=== PATIENT | female | born 1965 | race American Indian/Alaskan Native ===

== ENCOUNTER 2016-10-17 08:06 | Outpatient (CLI) | payer MEDICAID ==
--- NOTE | 2016-10-17 09:58 | Cat Scan Report ---
CT CHEST WITH CONTRAST: 10/17/16 08:06:00 CLINICAL: History of breast cancer status post left partial mastectomy. Anemia secondary to blood loss. Comparison: None. TECHNIQUE: Volumetric acquisition and 1.25 mm scan reconstructions after the uneventful intravenous injection of 100cc Omnipaque 300. Consent was obtained prior to the administration of contrast. FINDINGS: The lungs are normally expanded and clear. No pulmonary nodule or mass. Normal heart, pulmonary arteries and aorta. Right Zpupdq-[id number]-Wosh tip is in the right atrium. No hilar or mediastinal lymphadenopathy. No pleural effusion. Normal thyroid, trachea and esophagus. No axillary or supraclavicular lymphadenopathy. The upper abdomen is normal. The spleen measures 9.5 cm maximum. The bones and soft tissues are normal. IMPRESSION: Normal chest.
== END 2016-10-17 08:07 | disposition home or self-care (01) ==
LOC: SPVIMAG 08:06
PROVIDERS: ATTEND Internal Medicine Hematology & Oncology
DX: Z85.3 Personal history of malignant neoplasm of breast (principal); Z90.12 Acquired absence of left breast and nipple
CPT/HCPCS: 71260; Q9967

== ENCOUNTER 2016-12-14 10:33 | Outpatient (CLI) | payer MEDICAID ==
--- NOTE | 2016-12-14 13:15 | XRay Report ---
LUMBOSACRAL SPINE, FIVE VIEWS: Back pain Views of the lumbosacral spine demonstrate normal bony alignment, vertebral height and interspace distances. Oblique views show patent foramina and normal apophyseal joint alignment. IMPRESSION: Normal study.
--- NOTE | 2016-12-14 13:16 | XRay Report ---
RIGHT HIP: Hip pain. The bony architecture is intact without evidence of fracture or dislocation. No significant soft tissue abnormality is seen. IMPRESSION: Normal right hip.
== END 2016-12-14 10:34 | disposition home or self-care (01) ==
LOC: XRAY 10:33
PROVIDERS: ATTEND Internal Medicine Hematology & Oncology
DX: M54.9 Dorsalgia, unspecified (principal); M25.551 Pain in right hip; C50.212 Malignant neoplasm of upper-inner quadrant of left female breast; D50.0 Iron deficiency anemia secondary to blood loss (chronic)
CPT/HCPCS: 72110

== ENCOUNTER 2017-01-16 09:18 | Day surgery (SDC) | payer MEDICAID ==
[2017-01-16] MEDS ORDERED: NACL 0.9% 1000 ML 1,000 ML IV SCH (11:00)
--- NOTE | 2017-01-16 11:03 | Anesthesia Consultation ---
Anesthesia Consult and Med Hx Date of service: 01/16/17 - Airway Anesthetic Teeth Evaluation: Good ROM Head & Neck: Adequate Mental/Hyoid Distance: Adequate Mallampati Class: Class II Intubation Access Assessment: Probably Good - Pulmonary Exam CTA: Yes - Cardiac Exam Cardiac Exam: RRR - Pre-Operative Health Status ASA Pre-Surgery Classification: ASA3 Proposed Anesthetic Plan: MAC - Pulmonary Hx Smoking: No Hx Asthma: Yes (prn inhaler, uses Albuterol once a week) COPD: No Hx Pneumonia: No Hx Sleep Apnea: No - Cardiovascular System Hx Hypertension: Yes (history of "fast heart rate" - no episodes recently) Hx Coronary Artery Disease: No Hx Heart Attack/AMI: No Hx Angina: No (negative cardiac w/u per GI request) Hx Cardia Arrhythmia: No Hx Heart Murmur: No - Central Nervous System Hx Neuromuscular Disorder: No Hx Seizures: No CVA: No Hx Psychiatric Problems: No - Gastrointestinal Hx Gastroesophageal Reflux Disease: Yes - Endocrine Hx End Stage Renal Disease: No Hx Liver Disease: No Hx Non-Insulin Dependent Diabetes: No Hx Hypothyroidism: Yes Hx Hyperthyroidism: Yes (patient is now hypothyroid) - Hematic Hx Anemia: Yes Hx Sickle Cell Disease: No - Other Systems Hx Cancer: Yes (breast, 2015. Current treatment of chemo/radiation ) - Additional Comments Anesthesia Medical History Comments: no BP or IV left arm
--- NOTE | 2017-01-16 11:04 | Anesthesia Day of Surgery ---
Anesthesia Day of Surgery - Day of Surgery Patient Examined: Yes Patient H&P Reviewed: Yes Patient is NPO: Yes
[2017-01-16] MEDS ORDERED: WATER FOR IRRIG STERILE IR ONE (11:58)
[2017-01-16] MEDS ORDERED: XYLOCAINE MPF 2% ONE (12:00)
--- NOTE | 2017-01-16 12:33 | Short Stay Summary ---
Short Stay Documentation Date of service: 01/16/17 Narrative H&P: The patient presents for EGD for Nielson capsule placement to assess for suspected severe symptomatic GERD, refractory to medical therapy. - History Past Medical History: anemia, cancer (breast cancer history), GERD, hypothyroidism Past Surgical History: Other (breast surgery, tubal ligation, hernia repair) Social history: no significant social history, no smoking, no alcohol abuse - Allergies and Medications Current Medications: Allergies Penicillins Allergy (Verified 10/21/14 14:07) Rash codeine Adverse Reaction (Verified 10/21/14 14:07) Vomiting Home Medications Medication Instructions Recorded Confirmed Last Taken Type RX: Latanoprost [Xalatan 0.005% 1 drop OU QPM 07/07/14 10/21/14 01/15/17 History eye drops] RX: Diphenoxylate HCl/Atropine 1 each PO QID PRN 10/21/14 10/21/14 09/25/16 History [Lomotil 2.5-0.025 mg Tablet] RX: Levothyroxine [Synthroid] 200 mcg PO QAM 10/21/14 10/21/14 01/15/17 History RX: Ondansetron [Zofran TAB] 4 mg PO Q8HR PRN 10/21/14 10/21/14 01/15/17 History RX: Promethazine [Phenergan TAB] 25 mg PO Q6H PRN 10/21/14 10/21/14 09/25/16 History HYDROcodone/APAP 5-325 [[place] 1 each PO Q6HR PRN #20 tablet 10/27/14 09/25/16 Rx 5/325] Pantoprazole [Protonix] 40 mg PO QDAY #20 tablet 10/27/14 01/15/17 Rx RX: Amitriptyline [Elavil] 10 mg PO QHS #60 tablet 10/27/14 01/15/17 Rx RX: Butalb/Acetamin/Caff 50-325-40 2 tab PO Q4H PRN #30 tablet 10/27/14 Rx [Fioricet] RX: Divalproex ER [Depakote ER] 500 mg PO QDAY #30 tablet 10/27/14 01/15/17 Rx RX: SUMAtriptan SUCCINATE [Imitrex] 100 mg PO BID PRN #30 tablet 10/27/1409/25 Rx Active Medications Sodium Chloride (Nacl 0.9% 1000 Ml) 1,000 mls @ 50 mls/hr IV DIRECT HENOK Last Admin: 01/16/17 11:46 Dose: 50 mls/hr - Physical exam General appearance: no acute distress, well-nourished Integumentary: no rash, no growths, no abnormal pigmentation HEENT: Atraumatic, PERRLA, EOMI, Mucous membr. moist/pink Lungs: Clear to auscultation, Normal air movement Breasts: deferred Heart: Regular rate, Normal S1, Normal S2, No murmurs, no Gallops Gastrointestinal: normoactive bowel sounds, no tenderness, no distended, no masses, no guarding, no organomegaly, no hepatomegaly, no splenomegaly Female Genitourinary: deferred Rectal Exam: deferred Extremities: no ischemia, pulses intact, pulses symmetrical, No edema, normal temperature, normal color, Full ROM Neurological: Normal gait, Normal speech, Strength at 5/5 X4 ext, Normal tone, Sensation intact, Cranial nerves 3-12 NL - Brief post op/procedure progress note Date of procedure: 01/16/17 Findings: see dictation Estimated blood loss: none Pathology: none Condition: stable - Disposition Condition at discharge: Good - Discharge Diagnoses (1) GERD (gastroesophageal reflux disease) Status: Acute Qualifiers: Esophagitis presence: E Short Stay Discharge Plan Activity: other (no driving for 24 hours) Weight Bearing Status: Full Weight Bearing Diet: regular Follow up with: KUSHAL CRESPO MD [Primary Care Provider] - 7 Days
[2017-01-16] MEDS ORDERED: DIPRIVAN 10 MG/ML IV ONE ×2 (12:36)
--- NOTE | 2017-01-16 12:36 | Operative Report ---
Operative Report Operative Report: Date of procedure: 01/16/2017 Procedure: Esophagogastroduodenoscopy with placement of العلي capsule for 48- hour pH monitoring Preprocedure diagnosis: Suspected severe gastroesophageal reflux. Post procedure diagnosis: Status post العلي capsule placement. Normal- appearing upper digestive tract. Endoscopist: Dr. Marcos Anesthesia: Monitored anesthesia care per anesthesia department Medications: Propofol per anesthesia Estimated blood loss: 0 After careful discussion of the nature and purpose of the procedure as well as details the technique risks benefits and alternatives consent was obtained. The patient was placed in the left lateral decubitus position and medicated per anesthesia. The tip of the [employer] EQ 570 video scope was passed per orum under direct vision into the esophagus and advanced into the stomach and descending duodenum. The descending duodenum the duodenal bulb and pylorus were symmetrical and normal. The scope was withdrawn into the stomach and the stomach then gently insufflated with air. The antrum was normal. The stomach was further insufflated and the scope was then retroflexed and partially withdrawn. The cardia, fundus, and body of the stomach were within normal limits and easily distensible.The scope was then withdrawn in the forward position. The esophagogastric junction was at 40 cm. The esophageal body was normal throughout. The scope was withdrawn followed by placement prior him of the العلي capsule on the loading cannula. Suction was applied for 30 seconds and the capsule deployed 6 cm above the measured gastroesophageal junction. The scope was then reintroduced per ora him and advanced to the level of the capsule which appeared to be in excellent location. The procedure was was well tolerated and the patient was observed in recovery. Impressions: Status post العلي capsule placement for assessment of gastroesophageal reflux disease. Normal-appearing upper digestive tract. Plan: 48 hour esophageal pH monitoring. Patient will call the office in a week to discuss the findings and further management. Electronically signed: Neal Marcos MD
[2017-01-16 13:03] VITALS: BP 118/79
--- NOTE | 2017-01-16 13:21 | Post Anesthesia Evaluation ---
- Post Anesthesia Evaluation Patient Participated: Yes Airway Patent: Yes Stable Respiratory Function: Yes Nausea/Vomiting: No Temp > 96.8F: Yes Pain Manageable: Yes Adequeate Hydration: Yes Anesthesia Complications: No
== END 2017-01-16 09:19 | disposition home or self-care (01) ==
LOC: GIO 09:18
PROVIDERS: ATTEND Internal Medicine Gastroenterology
DX: K21.9 Gastro-esophageal reflux disease without esophagitis (principal); D64.9 Anemia, unspecified; E03.9 Hypothyroidism, unspecified; J45.909 Unspecified asthma, uncomplicated; I10 Essential (primary) hypertension; Z85.3 Personal history of malignant neoplasm of breast; Z98.51 Tubal ligation status; Z98.890 Other specified postprocedural states; Z88.0 Allergy status to penicillin; Z88.5 Allergy status to narcotic agent; Z79.899 Other long term (current) drug therapy
CPT/HCPCS: 43235; J2704; J7030

== ENCOUNTER 2017-08-09 10:33 | Emergency (ER) | payer MEDICAID ==
[2017-08-09] MEDS ORDERED: NACL 0.9% 500 ML 500 ML IV ONE (11:51)
--- NOTE | 2017-08-09 12:46 | XRay Report ---
CHEST 2 VIEWS INDICATION: Possible sepsis. COMPARISON: 07/26/2015. FINDINGS: PA and lateral chest radiographs demonstrate normal cardiomediastinal silhouette. Clear lungs. Two surgical clip-like densities again project over peripheral left midlung zone. Mild biapical scarring and pleural thickening. Interval right subclavian chest port removal. Intact bones. CONCLUSION: No acute disease in the disease with few other findings, as above. Thank you for the opportunity to participate in this patient's care.
[2017-08-09 13:00] LABS: Alanine Aminotransferase 20 units/L (7-56); BUN/Creatinine Ratio 21; Basophils % (Auto) 0.3 % (0.0-1.8); Blood Urea Nitrogen 19 mg/dL (7-17); Hematocrit 39.6 % (30.3-42.9); Hemoglobin 12.9 gm/dl (10.1-14.3); Hemolysis Index 6; INR 0.96 (0.87-1.13); Lymphocytes # (Auto) 1.2 K/mm3 (1.2-5.4); Lymphocytes % (Auto) 29.3 % (13.4-35.0); Mean Corpuscular HGB Conc 33 % (30-34); Mean Corpuscular Hemoglobin 29 pg (28-32); Mean Corpuscular Volume 90 fl (79-97); Monocytes # (Auto) 0.5 K/mm3 (0.0-0.8); Monocytes % (Auto) 12.6 % (0.0-7.3); Platelet Count 206 K/mm3 (140-440); Red Blood Count 4.42 M/mm3 (3.65-5.03); Red Cell Distribution Width 14.8 % (13.2-15.2)
[2017-08-09 22:40] LABS: Bilirubin,Urine NEG (Negative); Color,Urine Amber (Yellow)
[2017-08-09 22:41] LABS: Bacteria,Urine 1+ /HPF (Negative); Blood,Urine MOD (Negative); Mucus,Urine 3+ /HPF; Nitrite,Urine NEG (Negative); Renal Epithelial Cells,Urine 1 /LPF; Urobilinogen,Urine < 2.0 mg/dL (<2.0)
[2017-08-09 23:01] VITALS: BP 131/83
== END 2017-08-10 11:00 | disposition left against medical advice (07) ==
LOC: ED 10:33
DX: R05 Cough (principal); M79.1 Myalgia; R50.9 Fever, unspecified; Z53.21 Procedure and treatment not carried out due to patient leaving prior to being seen by health care provider
CPT/HCPCS: 36415; 71046; 80053; 81001; 82140; 85025; 85610; 87040; 87400

== ENCOUNTER 2017-08-20 13:25 | Outpatient (CLI) | payer MEDICAID ==
--- NOTE | 2017-08-21 13:47 | Mammography Report ---
BILATERAL DIGITAL AUGMENTED DIAGNOSTIC MAMMOGRAM WITH CAD: 08/20/17 13:25:00 CLINICAL: Breast cancer survivor status post left partial mastectomy and bilateral implant augmentation. COMPARISON:06/05/16 FINDINGS: Bilateral MLO and CC views with and without implant displacement were performed. Benign upper postsurgical scar and a 1.9 cm benign oil cyst at 1 o'clock approximately 5 cm from the nipple. No mass, architectural distortion or suspicious calcifications. Intact bilateral subpectoral implants which have been placed since the last exam. Surgical clips in the left axilla. IMPRESSION: No mammographic evidence of malignancy. BI-RADS CATEGORY: 2 - - Benign RECOMMENDATION: Routine mammographic screening in one year.
== END 2017-08-20 13:26 | disposition home or self-care (01) ==
LOC: SPVWC 13:25
PROVIDERS: ATTEND Surgery
DX: N64.89 Other specified disorders of breast (principal); Z90.12 Acquired absence of left breast and nipple; Z98.82 Breast implant status
CPT/HCPCS: 77066

== ENCOUNTER 2018-02-19 06:26 | Day surgery (SDC) | payer MEDICAID ==
[~2018-02-19 06:26] MED LIST: LACTATED RINGERS 1,000 ML ONE; NACL BACTERIOSTATIC INFILTRATI ONE; VANCOMYCIN/NS 1 GM/250 ML 1 GM/250 ML BAG IV NR
[2018-02-19] MEDS ORDERED: HEPARIN 10,000 UNITS/10 ML ONE (07:19)
[2018-02-19] MEDS ORDERED: XYLOCAINE 1% 20 mL ONE (07:19)
[2018-02-19] MEDS ORDERED: GELFOAM TP ONE (07:19)
[2018-02-19] MEDS ORDERED: MARCAINE 0.5% 30 ML INFILTRATI ONE (07:19)
[2018-02-19] MEDS ORDERED: NACL 0.9% 250ML 250 ML ONE (07:20)
--- NOTE | 2018-02-19 07:23 | Anesthesia Consultation ---
Anesthesia Consult and Med Hx Date of service: 02/19/18 - Airway Anesthetic Teeth Evaluation: Good ROM Head & Neck: Adequate Mental/Hyoid Distance: Adequate Mallampati Class: Class II Intubation Access Assessment: Probably Good - Pulmonary Exam CTA: Yes - Cardiac Exam Cardiac Exam: RRR - Pre-Operative Health Status ASA Pre-Surgery Classification: ASA3 Proposed Anesthetic Plan: General - Pulmonary Hx Smoking: No Hx Asthma: Yes (RESCUE INHALER) COPD: No Hx Pneumonia: No Hx Sleep Apnea: No - Cardiovascular System Hx Hypertension: Yes (8 YEARS) Hx Coronary Artery Disease: No Hx Heart Attack/AMI: No Hx Angina: No (negative cardiac w/u per GI request) Hx Cardia Arrhythmia: No Hx Heart Murmur: No - Central Nervous System Hx Neuromuscular Disorder: No Hx Seizures: No CVA: No Hx Psychiatric Problems: No - Gastrointestinal Hx Gastroesophageal Reflux Disease: Yes - Endocrine Hx End Stage Renal Disease: No Hx Liver Disease: No Hx Non-Insulin Dependent Diabetes: No Hx Hypothyroidism: Yes Hx Hyperthyroidism: Yes (patient is now hypothyroid) - Hematic Hx Anemia: Yes Hx Sickle Cell Disease: No - Other Systems Hx Alcohol Use: No Hx Substance Use: No Hx Cancer: Yes
[2018-02-19] MEDS ORDERED: ZOFRAN IV PRN ×2 (07:24→10:50)
[2018-02-19] MEDS ORDERED: DILAUDID IV PRN (07:24)
[2018-02-19] MEDS ORDERED: TORADOL IV PRN (07:24)
[2018-02-19] MEDS ORDERED: TYLENOL PO PRN (07:24)
--- NOTE | 2018-02-19 07:24 | Anesthesia Day of Surgery ---
Anesthesia Day of Surgery - Day of Surgery Patient Examined: Yes Patient H&P Reviewed: Yes Patient is NPO: Yes
[2018-02-19] MEDS ORDERED: SUBLIMAZE ONE (07:41)
[2018-02-19] MEDS ORDERED: DECADRON ONE (07:41)
[2018-02-19] MEDS ORDERED: ZOFRAN ONE (07:41)
[2018-02-19] MEDS ORDERED: DIPRIVAN 10 MG/ML IV ONE (07:42)
[2018-02-19] MEDS ORDERED: HEPARIN IV ONE (07:55)
[2018-02-19] MEDS ORDERED: NACL 0.9% IR ONE (07:55)
[2018-02-19] MEDS ORDERED: MARCAINE 0.5% INFILTRATI ONE (07:55)
[2018-02-19] MEDS ORDERED: NACL 0.9% 250ML IV ONE (07:55)
[2018-02-19] MEDS ORDERED: XYLOCAINE 1% 20 mL INFILTRATI ONE (07:55)
[2018-02-19] MEDS ORDERED: PEPCID IV NR (08:00)
[2018-02-19] MEDS ORDERED: LACTATED RINGERS 1,000 ML IV SCH (08:00)
[2018-02-19] MEDS ORDERED: REGLAN IV NR (08:00)
[2018-02-19] MEDS ORDERED: ZOFRAN IV NR (08:00)
[2018-02-19] MEDS ORDERED: ePHEDrine SULFATE ONE (08:14)
[2018-02-19] MEDS ORDERED: DECADRON IV NR (08:30)
[2018-02-19] MEDS ORDERED: DEMEROL IV PRN (09:10)
[2018-02-19] MEDS ORDERED: DEMEROL ONE (09:15)
--- NOTE | 2018-02-19 09:18 | Short Stay Summary ---
Short Stay Documentation Date of service: 02/19/18 - History H&P: obtained from office - Allergies and Medications Current Medications: Allergies Penicillins Allergy (Verified 02/18/18 11:23) Rash codeine Adverse Reaction (Verified 02/18/18 11:23) Vomiting Home Medications Medication Instructions Recorded Confirmed Last Taken Type Amitriptyline [Elavil] 25 mg PO DAILY 02/18/18 02/19/18 02/18/18 09:00 History Baclofen [Lioresal] 10 mg PO TID 02/18/18 02/19/18 02/18/18 19:00 History Benzonatate [Tessalon Perles] 100 mg PO Q8HR 02/18/18 02/19/18 02/16/18 09:00 History Butalb/Acetaminophen/Caffeine 1 cap PO Q8HR PRN 02/18/18 02/19/18 02/12/18 09: 00 History [Fioricet 50-300-40 mg CAP] Chlorthalidone 25 mg PO DAILY 02/18/18 02/19/18 02/18/18 09:[address] [DepaKOTE DR] 500 mg PO BID 02/18/18 02/19/18 02/18/18 19:00 History Gabapentin [Neurontin] 300 mg PO Q8HR 02/18/18 02/19/18 02/18/18 13:00 History Levothyroxine [Synthroid] 125 mcg PO QAM 02/18/18 02/19/18 02/18/18 09:00 History Montelukast [Singulair] 10 mg PO QPM 02/18/18 02/19/18 02/18/18 19:00 History Ranitidine HCl [Zantac 150 MG TAB] 150 mg PO QHS 02/18/18 02/19/18 02/18/18 19: 00 History Active Medications Acetaminophen (Tylenol) 650 mg PO ONCE PRN PRN Reason: Pain, Mild (1-3) Stop: 02/19/18 13:00 Famotidine (Pepcid) 20 mg IV PREOP NR Stop: 02/19/18 12:00 Last Admin: 02/19/18 07:38 Dose: 20 mg Hydromorphone HCl (Dilaudid) 0.5 mg IV Q10MIN PRN PRN Reason: Pain , Severe (7-10) Stop: 02/19/18 13:00 Vancomycin HCl (Vancomycin/Ns 1 Gm/250 Ml) 1 gm in 250 mls @ 166.667 mls/hr IV PREOP NR; Protocol Stop: 02/19/18 23:59 Last Admin: 02/19/18 07:51 Dose: 166.667 mls/hr Lactated Ringer's (Lactated Ringers) 1,000 mls @ 42 mls/hr IV DIRECT HENOK Last Admin: 02/19/18 07:35 Dose: 42 mls/hr Ketorolac Tromethamine (Toradol) 15 mg IV ONCE PRN PRN Reason: Pain, Mild (1-3) Stop: 02/19/18 13:00 Metoclopramide HCl (Reglan) 10 mg IV PREOP NR Stop: 02/19/18 12:00 Ondansetron HCl (Zofran) 4 mg IV ONCE PRN PRN Reason: Nausea And Vomiting Stop: 02/19/18 13:00 Ondansetron HCl (Zofran) 4 mg IV PREOP NR Stop: 02/19/18 12:00 - Physical exam General appearance: no acute distress Integumentary: no rash Lungs: Normal air movement Neurological: Normal speech - Brief post op/procedure progress note Date of procedure: 02/19/18 (Dictation:[id number]) Pre-op diagnosis: breast cancer Post-op diagnosis: same Procedure: Port placement under US guidance Anesthesia: GETA Findings: normal vascular anatomy. CXR looks ok Surgeon: МАРИЯ CHENEY Estimated blood loss: minimal Pathology: none Condition: stable - Hospital course Hospital course: uneventful port placement - Disposition Condition at discharge: Stable Disposition: DC-01 TO HOME OR SELFCARE Short Stay Discharge Plan Diet: regular Wound: open to air, keep clean and dry, other (May shower tomorrow. Pat dry wounds. Apply ice pack to left upper chest and neck 4-5x/day for 10min. Please do for 1 week) Special Instructions: no heavy lifting (or strenuous activity for 1 week) Additional Instructions: DIET IS REGULAR KEEP WOUND OPEN TO AIR CLEAN AND DRY MAY SHOWER TOMORROW PAT WOUND DRY APPLY ICE PACK TO LEFT UPPER CHEST AND NECK 4-5 TIMES PER DAY FOR 10 MINUTES PLEASE DO THIS FOR ONE WEEK. NO HEAVY LIFTING OR STRENUOUS ACTIVITY FOR ONE WEEK CALL DR CHENEY OFFICE FOR ALL QUESTIONS AND CONCERNS AND FOR FOLLOW UP APPOINTMENT Follow up with: LUIS E TYLER MD [Primary Care Provider] - 7 Days Forms: Outpatient Surgery DC Inst.
[2018-02-19] MEDS ORDERED: TORADOL ONE (09:19)
--- NOTE | 2018-02-19 09:25 | Fluoroscopy Report ---
FLUOROSCOPY CENTRAL VENOUS DEVICE PLACEMENT HISTORY: Kkefov-p-Tquo insertion, portal venous access A left IJ Wmzhwj-i-Kjgn has been inserted which terminates at the cavoatrial junction. No pneumothorax. AP view of the chest demonstrates a normal mediastinal and cardiac contour with clear lungs and normal bony and soft tissue structures. IMPRESSION: Unremarkable AP chest. Cwycca-z-Hati is described.
[2018-02-19] MEDS ORDERED: XYLOCAINE MPF 2% ONE (09:30)
[2018-02-19] MEDS ORDERED: NORMODYNE IV PRN (09:32)
[2018-02-19] MEDS ORDERED: BENADRYL IV PRN (11:01)
[2018-02-19] MEDS ORDERED: BENADRYL ONE (11:15)
[2018-02-19 11:43] VITALS: BP 146/89
--- NOTE | 2018-02-19 18:02 | Operative Report ---
PREOPERATIVE DIAGNOSIS: Breast cancer. POSTOPERATIVE DIAGNOSIS: Breast cancer. PROCEDURE: 1. Insertion of tunneled centrally-inserted central venous access device with subcutaneous port. 2. Ultrasound guidance for vascular access. ATTENDING PHYSICIAN: Doug Bernstein MD ANESTHESIA: General. ESTIMATED BLOOD LOSS: Minimal. FLUIDS: 500 mL. FINDINGS: Normal vascular anatomy. Chest x-ray showed no obvious complications. IMPLANTS: Infusaport. COMPLICATIONS: None. DISPOSITION: Stable, transferred to Recovery Room. INDICATIONS: This is a 52-year-old female with a history of breast cancer who is still receiving ongoing treatment requiring IV access. The patient is a very difficult IV stick for which request was made for port placement. Procedure, risks, benefits were explained to the patient. Risks included but were not limited to infection, bleeding, pain, injury to surrounding structures, possible hemopneumothorax, possible need for further procedures in the future. The patient understood and consented. OPERATIVE NOTE: The patient was brought to the operating room and placed on the table in supine position. After adequate general anesthesia was established, a roll was placed underneath the patient's back. Sterile prep and drape was performed. SCDs were in place. Antibiotics had been given as she is allergic to penicillin, vancomycin was given. Timeout was performed. Ultrasound was used to identify the left subclavian vein. It was a bit deep in this location; however, fairly close to the underlying lung. I examined the entire course. I felt that it may be a little bit too much risk to try to place the catheter there, and therefore, I turned my attention to the left internal jugular vein. It was very large and well distended along its entire course. There was no evidence of any narrowing or any clots. It appeared to be a very good target. The patient was in Trendelenburg position. Under ultrasound guidance, I anesthetized the planned incision site as well as the underlying tissue. Then, using the echogenic needle, I accessed the vessel. I accessed it on the first attempt. We had easy aspiration of blood. It was venous. Guidewire easily passed. We then confirmed position of the wire in the left internal jugular vein with the ultrasound device. Thereafter, we brought the fluoroscopy machine in and we confirmed that the catheter went down towards the heart. Thereafter, we planned the pocket site. Local anesthetic was used to anesthetize the planned incision site as well as the deep pocket. The skin was sharply incised. Pocket was created with a combination of electrocautery and blunt dissection, we confirmed that the port would easily fit in the location and then I packed it with gauze. I anesthetized the planned catheter tract and then passed the tunneler underneath the skin taking care to go over the clavicle and minimize going to deep in the neck. We brought it out through the vascular access site. I then placed the dilator and sheath over the guidewire. The guidewire was easily movable throughout the insertion process. We then removed the dilator and wire in 1 motion, covered up the opening to the sheath and then placed the catheter into the sheath. Under ultrasound guidance, I got the approximate location of where I wanted the catheter to enter. The access was pulled through the port incision site. We had the catheter clamped during this entire procedure. I then moved the clamp along the catheter until I had enough room to divide the catheter and then attached the port. We placed the Blue locking mechanism over that connection to secure it. The port easily fit into the pocket. We then checked to make sure we could easily aspirate and flush with the heparinized saline. This was easily done. I removed the sheath completely, tried to make sure there were no kinks in the catheter and then checked it with fluoroscopy. We appeared to have a very nice insertion with no kinks and the tip appeared to be at the atriocaval junction, which was our intended target. I then administered the locking solution, which was 1000 units per mL of heparin. We mixed 1 mL of this solution with 4 mL of saline and then administered that through the port. We made sure there was no bleeding. I then closed the subcutaneous tissue and dermis with interrupted 3-0 Vicryl sutures. Skin sites were closed with 4-0 Monocryl subcuticular stitches. Skin was cleaned and dried. Dermabond was placed. The patient tolerated the procedure well. There were no complications. Chest x-ray was done immediately after the case was done. I did not see any complications. The official read is no pneumothorax and catheter tip is at the atriocaval junction. I spoke with family after the case. They were appreciative. JOB# [id number] HILARY/ADRIANO
== END 2018-02-19 12:24 | disposition home or self-care (01) ==
LOC: OR 06:26
PROVIDERS: ATTEND Surgery
DX: C50.919 Malignant neoplasm of unspecified site of unspecified female breast (principal); I10 Essential (primary) hypertension; J45.909 Unspecified asthma, uncomplicated; K21.9 Gastro-esophageal reflux disease without esophagitis; E03.9 Hypothyroidism, unspecified; M19.90 Unspecified osteoarthritis, unspecified site; Z79.899 Other long term (current) drug therapy; Z98.51 Tubal ligation status; Z88.0 Allergy status to penicillin; Z88.5 Allergy status to narcotic agent; Z90.12 Acquired absence of left breast and nipple; Z86.2 Personal history of diseases of the blood and blood-forming organs and certain disorders involving the immune mechanism; Z98.890 Other specified postprocedural states
CPT/HCPCS: 36561; 77001; A4649; C1788; J1100; J1170; J1200; J1644; J1885; J2175; J2405; J2704; J2765; J3010; J3370; J7050; J7120

== ENCOUNTER 2018-09-02 10:57 | Outpatient (CLI) | payer MEDICAID ==
--- NOTE | 2018-09-02 11:56 | Mammography Report ---
BILATERAL DIGITAL AUGMENTED DIAGNOSTIC MAMMOGRAM WITH CAD: 09/02/18 10:57:00 CLINICAL: Breast cancer survivor status post left partial mastectomy and bilateral implant augmentation. COMPARISON:08/20/17 FINDINGS: Routine views with and without implant displacement were performed and demonstrate heterogeneously dense breasts, which may obscure small masses. Left benign postsurgical scar with benign fat necrosis. An upper outer oil cyst is smaller compared to the previous exam. No mass, suspicious architectural distortion or suspicious calcifications. Intact subpectoral implants. A left Lperue-n-Ornt obscures a portion of the left axilla. IMPRESSION: No mammographic evidence of malignancy. BI-RADS CATEGORY: 2 - - Benign RECOMMENDATION: Routine mammographic screening in one year.
== END 2018-09-02 10:58 | disposition home or self-care (01) ==
LOC: SPVWC 10:57
PROVIDERS: ATTEND Surgery
DX: R92.8 Other abnormal and inconclusive findings on diagnostic imaging of breast (principal); K21.9 Gastro-esophageal reflux disease without esophagitis; M19.90 Unspecified osteoarthritis, unspecified site; E03.9 Hypothyroidism, unspecified; Z86.2 Personal history of diseases of the blood and blood-forming organs and certain disorders involving the immune mechanism; Z85.3 Personal history of malignant neoplasm of breast
CPT/HCPCS: 77066

== ENCOUNTER 2020-11-01 08:47 | Outpatient (CLI) | payer MEDICAID, OTHER ==
--- NOTE | 2020-11-01 10:18 | Mammography Report ---
DIGITAL SCREENING MAMMOGRAM WITH CAD, 11/01/2020 INDICATION: Routine screening mammography. TECHNIQUE: Digital bilateral 2D mammography was obtained in the craniocaudal and mediolateral obliq ue projections. This examination was interpreted with the benefit of Computer-Aided Detection analysi s. COMPARISON: 06/05/2016, 10/05/2019 FINDINGS: Breast Density: The breasts are heterogeneously dense, which may obscure small masses. There is no evidence of dominant mass, suspicious calcifications or architectural distortion in the l eft breast. Bilateral silicone retropectoral breast implants are present. A segment of chemotherapy p ort is seen in the superior portion of the left breast. Postsurgical scar noted in the left breast at 12:00. There is an associated small oil cyst in the 12:00 position left breast adjacent to the surgi sabina scar as well. On the cc view only, there is a new small focal irregular asymmetry in the central posterior right br east. This will need further evaluation. IMPRESSION: 1. New focal asymmetry seen in the right central posterior breast, CC view only. Please obtain spot c ompression views in CC view and MLO view. Right breast ultrasound may be required based on those find ings. 2. No abnormal findings visualized within the lateral left breast BI-RADS Category 0: Incomplete. Needs additional imaging evaluation and/or prior mammograms for terra rison. A "normal" or negative report should not discourage follow up or biopsy of a clinically significant f inding. A written summary of these findings will be mailed to the patient. The patient will be entered into a mammography reporting system which will generate a reminder letter for the patient's next appointmen t at the appropriate interval. The [employer] recommends yearly mammograms starting at age 40 and continuing as l fran as a woman is in good health. Breast MRI is recommended for women with an approximate 20-25% or greater lifetime risk of breast cancer, including women with a strong family history of breast or ova papo cancer or who have been treated for Hodgkin's disease. Signer Name: Lilia Moran MD Signed: 11/01/2020 10:13 AM Workstation Name: [id number]
== END 2020-11-01 08:48 | disposition home or self-care (01) ==
LOC: SPVWC 08:47
PROVIDERS: ATTEND Surgery
DX: Z12.31 Encounter for screening mammogram for malignant neoplasm of breast (principal)
CPT/HCPCS: 77067

== ENCOUNTER 2020-11-09 10:38 | Outpatient (CLI) | payer MEDICAID ==
--- NOTE | 2020-11-09 14:15 | Ultrasound Report ---
RIGHT DIGITAL DIAGNOSTIC MAMMOGRAM WITH CAD CONVENTIONAL, 11/09/2020 BILATERAL LIMITED BREAST ULTRASOUND CLINICAL INFORMATION / INDICATION: Patient presents as a callback from screening mammogram for furthe r evaluation of an asymmetric density in the right breast. Patient also reports an area of focal pain /palpable concern in the left axilla. PERSONAL HX OF MALIGNANT NEOPLASM OF BREAST/INCONCLUSIVE MAMMO TECHNIQUE: Digital right mammographic imaging was performed. Spot compression views were obtained. Li mited ultrasound was performed. This examination was interpreted with the benefit of Computer-Aided D etection (CAD) analysis. COMPARISON: Prior mammogram 11/01/2020 FINDINGS: Breast Density: The breasts are heterogeneously dense, which may obscure small masses. MAMMOGRAPHIC FINDINGS: The previously described asymmetric density in the central right breast, middl e depth, seen on CC view only is less conspicuous on spot compression view, suggesting overlapping fi broglandular tissue. Targeted ultrasound performed for confirmation. ULTRASOUND FINDINGS: Targeted ultrasound evaluation was performed of the area of interest. Right breast: Targeted ultrasound of the 12:00, central, and 6:00 right breast reveals normal fibrogl andular tissue. No suspicious cystic or solid lesion identified. There is no sonographic correlate fo r the previously questioned asymmetric density, confirming that this represents overlapping fibroglan dular tissue. Left breast: Targeted ultrasound of the area of focal pain/palpable concern in the left axilla reveal s a morphologically normal lymph node. No suspicious sonographic abnormality identified. IMPRESSION: 1. The previously described asymmetric density in the right breast is less conspicuous on additional views and without sonographic correlate, compatible with overlapping fibroglandular tissue. 2. A morphologically normal lymph node is seen at the site of focal pain and palpable concern in the left axilla. Follow up recommendation: Routine yearly BI-RADS Category 2: Benign. A "normal" or negative report should not discourage follow up or biopsy of a clinically significant f inding. A written summary of these findings will be mailed to the patient. The patient will be entered into a mammography reporting system which will generate a reminder letter for the patient's next appointmen t at the appropriate interval. According to the [employer], yearly mammograms are recommended starting at age 40 and continuing as long as a woman is in good health. Breast MRI is recommended for women with an lolis roximately 20-25% or greater lifetime risk of breast cancer, including women with a strong family his tory of breast or ovarian cancer and women who have been treated for Hodgkin's disease. Signer Name: Faith Galdamez MD Signed: 11/09/2020 2:10 PM Workstation Name: [id number]
== END 2020-11-09 10:39 | disposition home or self-care (01) ==
LOC: SPVWC 10:38
PROVIDERS: ATTEND Surgery
DX: R92.2 Inconclusive mammogram (principal); Z85.3 Personal history of malignant neoplasm of breast